=== PATIENT | female | born 1955 | race Caucasian/White ===

== ENCOUNTER → 2016-11-03 | Outpatient (CLI) | payer OTHER ==
[~2016-11-03] MED LIST: ASCO10003 PO; CITA40TA12 PO; DEXL60CA4 PO; KETO10TA PO; LEVO125T72 PO; MELO7.5T5 PO; OXYC-57 PO; ROSU20TA PO; ZOLP5TAB PO
[2016-11-03 17:12] LABS: BASO % 0.6 %; BASO ABS # 0.03 K/uL (0-0.2); COMPLETE YES; EOS % 5.2 %; HEMATOCRIT 41.4 % (37-47); IG% 0.2 %; LYMPH % 44.9 %; LYMPH ABS # 2.34 K/uL (1.2-3.4); MEAN CELL VOLUME 96.7 fL (80-100); MEAN CORPUSCULAR HEMOGLOBIN 32.7 pg (25-34); MEAN CORPUSCULAR HGB CONC 33.8 g/dl (32-36); MEAN PLATELET VOLUME 9.5 fL (7.4-10.4); MONO % 11.3 %; NEUT % 37.8 %; PLATELET COUNT 187 K/uL (130-400); RED BLOOD COUNT 4.28 M/uL (4.2-5.4); WHITE BLOOD COUNT 5.21 K/uL (4.8-10.8)
== END | disposition home or self-care (01) ==
LOC: C.LAB 16:07
PROVIDERS: ATTEND Orthopaedic Surgery Sports Medicine
DX: Z01.810 Encounter for preprocedural cardiovascular examination (principal); Z01.812 Encounter for preprocedural laboratory examination; M19.90 Unspecified osteoarthritis, unspecified site

== ENCOUNTER → 2016-11-23 | Day surgery (SDC) | payer OTHER ==
[~2016-11-23] VITALS: Ht 157.5 cm; Wt 98.6 kg
[~2016-11-23] MED LIST changes: +ATROPINE SULFATE 0.1 MG/ML 5ML SYR IV PRN; +BUPIVACAINE/EPINEPHRINE 0.5% MPF 1:200,000 30 ML VIAL ONE; +CLINDAMYCIN PHOS 150 MG/ML 2 ML VIAL IV SCH; +DEXAMETHASONE SOD INJ 4 MG/ML VIAL ONE; +DOXY-300 PO; +EpHEDrine SULFATE INJ 50 MG/ML AMP IV PRN; +FENTANYL CITRATE INJ 50 MCG/1 ML 2 ML VIAL ONE; +HYDROmorphone INJ 0.5 MG/0.5 ML SYR ONE; +HYDROmorphone INJ 2 MG/ML SYR/VIAL IV PRN; +LABETALOL HCL IV 5 MG/ML 20ML IV ONE; +LACTATED RINGER'S 1000ML 1,000 ML IV SCH; +LIDOCAINE HCL 2% 2 ML VIAL (20MG/ML) ONE; +MIDAZOLAM HCL 1 MG/ML 2ML VIAL ONE; +ONDANSETRON INJ 2 MG/ML 2 ML VIAL IV PRN; +ONDANSETRON INJ 2 MG/ML 2 ML VIAL ONE; +OXYCODONE/ACETAMINOPHEN 5-325 TAB PO PRN; +PHENYLEPHRINE 100MCG/ML 5ML SYR IV PRN; +PROPOFOL IV EMULSION 10 MG/ML 20 ML VIAL IV ONE; +SODIUM CHLORIDE 0.9% 1000ML 1,000 ML IV SCH
--- NOTE | 2016-11-23 06:55 | History & Physical Bridge - [place] ---
H&P Re-Evaluation Bridge Note: I have examined the patient, reviewed the History & Physical and in the interval since the performance of the History & Physical I have noted the following changes of clinical significance: No changes noted
[2016-11-23 07:12] VITALS: Ht 157.5 cm; Wt 98.6 kg
--- NOTE | 2016-11-23 09:08 | [facility] Post Operative Brief Note ---
Immediate Operative Summary Operative Date Nov 23, 2016. Pre-Operative Diagnosis Left First CMC DJD Post-Operative Diagnosis Same Procedure(s) Performed Left Thumb Carpometacarpal Joint Arthroplasty Surgeon Dr. Herman Disability Examiner Surgeon(s) Tai Betancur PA-C Estimated Blood Loss Minimal Findings CMC DJD Specimens None Anesthesia General Complication(s) None Disposition Recovery Room / PACU
--- NOTE | 2016-11-23 09:13 | Discharge Instructions-SurgCtr ---
Discharge Instructions Date of Service Nov 23, 2016. Visit Reason for Visit: Left Localized Primary Osteoarthritis Wrist, Pain Discharge Discharge Diagnosis / Problem: left thumb cmc joint arthritis Discharge Goals Goal(s): Decrease discomfort, Improve function, Therapeutic intervention Medications Stopped Medications Name(s): Vitamin C- stopped 10 days ago. Mobic- stopped 10 days ago. Restart Stopped Medication(s): may restart vitamin c. may restart mobic when finished taking toradol Activity Recommendations Activity Limitations: per Instructions/Follow-up section limited use of left hand Anesthesia . Post Anesthesia Instructions: If you have had General Anesthesia or IV Sedation: * Do not drive today. * Resume driving when surgeon permits. * Do not make important decisions or sign legal documents today. * Call surgeon for: 1. Temperature elevations greater than 101 degrees F. 2. Uncontrollable pain. 3. Excessive bleeding. 4. Persistent nausea and vomiting. 5. Medication intolerance (nausea, vomiting or rash). * For nausea and vomiting use only clear liquids such as: tea, soda, bouillon until nausea subsides, then gradually increase diet as tolerated. * If you have any concerns or questions, call your surgeon's office. If physician is unavailable and it is an emergency, call 911 or go to the nearest emergency room. . Instructions / Follow-Up Instructions / Follow-Up MEDICATIONS: * Resume previous medications unless instructed otherwise by your surgeon. * Always take pain medication on a full stomach or with food to avoid upset stomach. * Do not drink alcohol or drive while taking narcotics. * Tylenol may be taken if narcotic not needed. SPECIAL CARE INSTRUCTIONS: __ None _x_ Keep extremity elevated and iced x 48 hours; apply ice 20-30 minutes 8-10 times/day. May remove at night. _x_ Sling __24 hrs/day __ Remove at night __ Shoulder Immobilizer __ 24 hrs/day __ Remove at night _x_ Dressing _x_ Maintain until seen in office, may shower with plastic over site __ Remove dressings in 24-48 hours and then may shower __ Cover incisions with band-aids after showering __ Do not remove steri-strips Call physician if chills or temperature rises above 102 degrees or pain unrelieved by prescribed pain medications at . . follow up in 2 weeks Diet Recommendations Home Diet: resume previous diet Procedures Procedures Performed: Left Thumb Carpometacarpal Joint Arthroplasty Pending Studies Studies pending at discharge: no Medical Emergencies . Who to Call and When: Medical Emergencies: If at any time you feel your situation is an emergency, please call 911 immediately. . Non-Emergent Contact Non-Emergency issues call your: Surgeon . . "Provider Documentation" section prepared by Al Betancur.
--- NOTE | 2016-11-23 09:33 | DIAGNOSTIC IMAGING REPORT ---
INTRAOPERATIVE LEFT WRIST (2 views) CLINICAL HISTORY: LT THUMB CMC ARTHROPLASTY COMPARISON STUDY: None FLUOROSCOPY TIME: 57 seconds. FINDINGS: 2 intraoperative fluoroscopic spot images reveal an orthopedic wire traversing the proximal first and second metacarpals. There has been apparent resection of the trapezium. IMPRESSION: Postsurgical changes as described above. Electronically signed by: Pedro Morales M.D. 11/23/2016 9:31 AM Dictated Date/Time: 11/23/2016 9:30 AM
[2016-11-23 10:06] VITALS: TEMP 36.6
--- NOTE | 2016-11-23 10:20 | Anesthesia Progress Nt - [facility] ---
Anesthesia Post Op Note Date & Time Nov 23, 2016 at 10:20 Vital Signs Pain Intensity: 7 Vital Signs Past 12 Hours Date Time Temp Pulse Resp B/P Pulse Ox O2 Delivery O2 Flow Rate FiO2 11/23/16 10:00 139/75 11/23/16 09:59 67 20 92 11/23/16 09:59 68 20 11/23/16 09:59 67 20 92 11/23/16 09:59 67 20 92 11/23/16 09:59 68 20 11/23/16 09:59 68 20 11/23/16 09:58 73 16 94 11/23/16 09:58 73 16 11/23/16 09:56 37.1 Room Air 11/23/16 09:55 130/103 11/23/16 09:53 68 23 11/23/16 09:53 67 23 98 11/23/16 09:50 136/74 11/23/16 09:48 66 16 98 11/23/16 09:48 66 16 11/23/16 09:47 68 20 98 11/23/16 09:47 67 20 11/23/16 09:45 141/66 11/23/16 09:42 65 21 11/23/16 09:42 64 21 98 11/23/16 09:40 136/72 11/23/16 09:37 70 17 93 11/23/16 09:37 71 17 11/23/16 09:35 154/74 11/23/16 09:32 66 16 11/23/16 09:32 65 16 99 11/23/16 09:30 150/71 11/23/16 09:27 68 16 11/23/16 09:27 68 16 99 11/23/16 09:25 150/78 11/23/16 09:22 68 14 11/23/16 09:22 68 14 99 11/23/16 09:20 165/81 11/23/16 09:17 69 18 99 11/23/16 09:17 69 18 11/23/16 09:16 145/80 11/23/16 09:12 36.7 80 18 183/93 99 Mask 8 11/23/16 09:12 72 15 183/93 100 11/23/16 09:12 73 15 11/23/16 07:03 36.6 70 18 217/106 96 Room Air Notes Mental Status: alert / awake / arousable, participated in evaluation Pt Amnestic to Procedure: Yes Nausea / Vomiting: adequately controlled Pain: adequately controlled Airway Patency, RR, SpO2: stable & adequate BP & HR: stable & adequate Hydration State: stable & adequate Anesthetic Complications: no major complications apparent
[2016-11-23 10:43] VITALS: BP 143/77; PULSE 70; O2SAT 97
--- NOTE | 2016-11-24 00:34 | OPERATIVE REPORT ---
DATE OF OPERATION: 11/23/2016 SURGEON: Phuc Herman MD RN CARDIOVASCULAR ICU: [facility] PREOPERATIVE DIAGNOSIS: Left first CMC joint arthritis. POSTOPERATIVE DIAGNOSIS: Same. PROCEDURE PERFORMED: Left first CMC joint suspension arthroplasty. COMPLICATIONS: None. ESTIMATED BLOOD LOSS: Minimal. TOURNIQUET TIME: 35 minutes at 250 mmHg. ANESTHESIA: General. SPECIMENS: None. OPERATIVE INDICATIONS: The patient is a 61-year-old female who has about a year history of left thumb pain and discomfort. She wore a splint initially which provided some temporary relief, but then became less successful over time. She had an injection which helped very temporarily. She has had persistent pain with gripping activities and elected to proceed with surgical treatment. OPERATIVE PROCEDURE: The patient taken to the operating room, identified and placed on the operating table in supine position. All contact areas were appropriately padded. IV antibiotics were provided by the anesthesia team. A general anesthetic was implemented by anesthesia team. A left upper extremity tourniquet was placed. The left arm was then prepped and draped in the usual sterile fashion. Left arm was elevated and exsanguinated with Esmarch and tourniquet was placed at 250 mmHg. About a 4 cm incision was made just at the base of the first metacarpal directly over the first dorsal compartment. Blunt dissection was carried out through the subcutaneous tissues taking great care to protect branches of superficial radial nerve. An incision was then made between the abductor pollicis longus and extensor pollicis brevis tendons. Sharp dissection was carried directly down to the bone and into the trapezium. The capsule was then stripped off the dorsal and volar side of the trapezium as well as the base of the first metacarpal. Once adequate exposure was obtained, a saw was used to section the trapezium. I then used an osteotome to complete this and then removed the trapezium in a piecemeal fashion. Great care was taken to protect the palmar ligaments. Once all the bone had been excised, x-ray was brought in to verify trapezium was completely resected. Once this was complete, we irrigated the wound extensively and injected locally with about 20 mL of 0.5% Marcaine with epinephrine and then irrigated with another 10 mL. I then closed the capsule with 2-0 Vicryl suture in a [id number] fashion. The tourniquet was then let down for a tourniquet time of 35 minutes. Hemostasis was assured with use of electrocautery. The wound was once again irrigated. The subcutaneous tissues were then closed with 2-0 Dexon suture in a buried interrupted fashion. Skin was closed with 4-0 nylon suture in a horizontal mattress fashion. X-ray was then brought in. Keeping the thumb in maximum extension and pronation, I then pinned the first metacarpal to the base of the second. Great care was taken to make sure that the pin did not irritate any of the extensor tendons. Once position was verified, a pin ball was placed in the end of the pin and the pin was cut. A sterile dressing composed of Xeroform, 4 x 4's, sterile cast padding and a thumb spica splint were applied. The patient was then placed in a sling. She was brought out of general anesthesia and transferred to the recovery room in stable condition. The patient tolerated the procedure well with no complications. All needle and sponge counts were correct at the end of the operation. I attest to the content of the Intraoperative Record and any orders documented therein. Any exceptio ns are noted below.
== END | disposition home or self-care (01) ==
LOC: X.SURG 06:28
PROVIDERS: ATTEND Orthopaedic Surgery Sports Medicine
DX: M18.12 Unilateral primary osteoarthritis of first carpometacarpal joint, left hand (principal); F17.210 Nicotine dependence, cigarettes, uncomplicated

== ENCOUNTER → 2017-03-09 | Outpatient (CLI) | payer OTHER ==
[~2017-03-09] MED LIST changes: -ATROPINE SULFATE 0.1 MG/ML 5ML SYR IV PRN; -BUPIVACAINE/EPINEPHRINE 0.5% MPF 1:200,000 30 ML VIAL ONE; -CLINDAMYCIN PHOS 150 MG/ML 2 ML VIAL IV SCH; -DEXAMETHASONE SOD INJ 4 MG/ML VIAL ONE; -DOXY-300 PO; -EpHEDrine SULFATE INJ 50 MG/ML AMP IV PRN; -FENTANYL CITRATE INJ 50 MCG/1 ML 2 ML VIAL ONE; -HYDROmorphone INJ 0.5 MG/0.5 ML SYR ONE; -HYDROmorphone INJ 2 MG/ML SYR/VIAL IV PRN; -KETO10TA PO; -LABETALOL HCL IV 5 MG/ML 20ML IV ONE; -LACTATED RINGER'S 1000ML 1,000 ML IV SCH; -LIDOCAINE HCL 2% 2 ML VIAL (20MG/ML) ONE; -MELO7.5T5 PO; -MIDAZOLAM HCL 1 MG/ML 2ML VIAL ONE; -ONDANSETRON INJ 2 MG/ML 2 ML VIAL IV PRN; -ONDANSETRON INJ 2 MG/ML 2 ML VIAL ONE; -OXYCODONE/ACETAMINOPHEN 5-325 TAB PO PRN; -PHENYLEPHRINE 100MCG/ML 5ML SYR IV PRN; -PROPOFOL IV EMULSION 10 MG/ML 20 ML VIAL IV ONE; -SODIUM CHLORIDE 0.9% 1000ML 1,000 ML IV SCH
== END | disposition home or self-care (01) ==
LOC: C.LABMFLN 13:22
PROVIDERS: ATTEND Family Medicine
DX: R30.0 Dysuria (principal)

== ENCOUNTER → 2017-07-11 | Day surgery (SDC) | payer OTHER ==
[2017-07-05 08:10] VITALS: Ht 157.5 cm; Wt 100.0 kg
[~2017-07-11] VITALS: Ht 157.5 cm; Wt 100.0 kg
[~2017-07-11] MED LIST changes: +ATROPINE SULFATE 0.1 MG/ML 5ML SYR IV PRN; +BUPIVACAINE 0.5 % 5 MG/1 ML PF 10ML VIAL ONE; +CLINDAMYCIN 600 MG/54 ML D5W 54 ML IV SCH; +CLINDAMYCIN 600MG IV SCH; +DOXY-300 PO; +EpHEDrine SULFATE INJ 50 MG/ML AMP IV PRN; +FENTANYL CITRATE INJ 50 MCG/1 ML 2 ML VIAL IV PRN; +FENTANYL CITRATE INJ 50 MCG/1 ML 2 ML VIAL ONE; +KETO10TA PO; +LACTATED RINGER'S 1000ML 1,000 ML IV SCH; +LIDOCAINE HCL 1% 20 ML VIAL ONE; +LIDOCAINE HCL 2% 2 ML VIAL (20MG/ML) ONE; +MIDAZOLAM HCL 1 MG/ML 2ML VIAL ONE; +ONDANSETRON INJ 2 MG/ML 2 ML VIAL IV PRN; +ONDANSETRON INJ 2 MG/ML 2 ML VIAL ONE; -OXYC-57 PO; +OXYCODONE/ACETAMINOPHEN 5-325 TAB PO PRN; +PROPOFOL IV EMULSION 10 MG/ML 20 ML VIAL IV ONE; +SODIUM CHLORIDE 0.9% 1000ML 1,000 ML IV SCH
--- NOTE | 2017-07-11 08:04 | [facility] Post Operative Brief Note ---
Immediate Operative Summary Operative Date Jul 11, 2017. Pre-Operative Diagnosis Left Ring Finger Trigger Digit Post-Operative Diagnosis Same Procedure(s) Performed Left Ring Trigger Finger Release Surgeon Dr. Morales Dye House Worker Surgeon(s) Ciaran Gan PA-C Estimated Blood Loss 0 Findings ABOVE Specimens None Anesthesia LOCAL IV SEDATION Complication(s) None Disposition
[2017-07-11 08:08] VITALS: TEMP 36.7
--- NOTE | 2017-07-11 08:09 | Discharge Instructions-SurgCtr ---
Discharge Instructions Date of Service Jul 11, 2017. Visit Reason for Visit: Left Ring Finger Trigger Finger Discharge Discharge Diagnosis / Problem: SAMEA ABOVE Discharge Goals Goal(s): Decrease discomfort, Improve function Activity Recommendations Activity Limitations: as noted below Lifting Limitations: until after follow-up appointment Exercise/Sports Limitations: until after follow-up appointment Shower/Bathe: keep incision dry Anesthesia . Post Anesthesia Instructions: If you have had General Anesthesia or IV Sedation: * Do not drive today. * Resume driving when surgeon permits. * Do not make important decisions or sign legal documents today. * Call surgeon for: 1. Temperature elevations greater than 101 degrees F. 2. Uncontrollable pain. 3. Excessive bleeding. 4. Persistent nausea and vomiting. 5. Medication intolerance (nausea, vomiting or rash). * For nausea and vomiting use only clear liquids such as: tea, soda, bouillon until nausea subsides, then gradually increase diet as tolerated. * If you have any concerns or questions, call your surgeon's office. If physician is unavailable and it is an emergency, call 911 or go to the nearest emergency room. . Instructions / Follow-Up Instructions / Follow-Up MEDICATIONS: * Resume previous medications unless instructed otherwise by your surgeon. * Always take pain medication on a full stomach or with food to avoid upset stomach. * Do not drink alcohol or drive while taking narcotics. * Ibuprofen or Tylenol may be taken if narcotic not needed. SPECIAL CARE INSTRUCTIONS: __ None _x_ Keep extremity elevated and iced x 48 hours; apply ice 20-30 minutes 8-10 times/day. May remove at night. __ Sling __24 hrs/day __ Remove at night __ Shoulder Immobilizer __ 24 hrs/day __ Remove at night _x_ Dressing __ Maintain until seen in office, may shower with plastic over site _x_ Remove dressings in 24-48 hours and then may shower _x_ Cover incisions with band-aids after showering __ Do not remove steri-strips Call physician if chills or temperature rises above 102 degrees or pain unrelieved by prescribed pain medications at . . Diet Recommendations Home Diet: no limitations Procedures Procedures Performed: Left Ring Trigger Finger Release Pending Studies Studies pending at discharge: no Medical Emergencies . Who to Call and When: Medical Emergencies: If at any time you feel your situation is an emergency, please call 911 immediately. . Non-Emergent Contact Non-Emergency issues call your: Primary Care Provider . . "Provider Documentation" section prepared by Jorden Gan. .
[2017-07-11 08:23] VITALS: BP 160/96; PULSE 62; O2SAT 97
--- NOTE | 2017-07-11 08:24 | OPERATIVE REPORT ---
DATE OF OPERATION: 07/11/2017 PREOPERATIVE DIAGNOSIS: Left ring trigger finger. POSTOPERATIVE DIAGNOSIS: Same. PROCEDURE: Release of the A1 norm, left ring finger. SURGEON: Dr. Tien Morales, PERINATAL BREASTFEEDING ASSISTANT: Jorden Gan PA-C ANESTHESIOLOGIST: Gael Ivy DO ANESTHESIA: Local with IV sedation. DRAINS: None. COMPLICATIONS: None. CONDITION: The patient tolerated the procedure well and returned to recovery room in apparent satisfactory condition. INDICATIONS FOR SURGERY: Sabrina is a 62-year-old female who has had triggering of her left ring finger, which has gotten progressively worse. We went over treatment options and she elected to go ahead and proceed with surgery. DESCRIPTION OF PROCEDURE: The patient was taken to the OR, at which time she was placed supine on the operating table and given IV sedation by the anesthesia department. Left hand was prepped and draped in the usual sterile fashion for surgery. We exsanguinated the hand and put the forearm tourniquet up to 250 mmHg. We made a transverse incision over the A1 norm and dissected down with loupe magnification. We divided the A1 norm without incident. We used an 11 blade and a tenotomy scissors. The finger was taken through a range of motion with no longer triggering. The wound then was irrigated. Incision then was closed with interrupted 4-0 nylon sutures. Marcaine without epinephrine was placed in skin edges. She was placed in a sterile dressing of Xeroform, 4 x 4, gauze and a Coban and returned back to recovery room in apparent satisfactory condition. I attest to the content of the Intraoperative Record and any orders documented therein. Any exception s are noted below.
--- NOTE | 2017-07-11 08:26 | Anesthesia Progress Nt - [facility] ---
Anesthesia Post Op Note Date & Time Jul 11, 2017 at 08:25 Vital Signs Pain Intensity: 0 Vital Signs Past 12 Hours Date Time Temp Pulse Resp B/P (MAP) Pulse Ox O2 Delivery O2 Flow Rate FiO2 07/11/17 08:23 62 16 160/96 (117) 97 Room Air 07/11/17 08:08 36.7 63 16 150/80 (103) 98 Room Air 07/11/17 06:46 36.5 71 18 167/96 (119) 96 Room Air Notes Mental Status: alert / awake / arousable, participated in evaluation Pt Amnestic to Procedure: Yes Nausea / Vomiting: adequately controlled Pain: adequately controlled Airway Patency, RR, SpO2: stable & adequate BP & HR: stable & adequate Hydration State: stable & adequate Anesthetic Complications: no major complications apparent
== END | disposition home or self-care (01) ==
LOC: X.SURG 06:31
PROVIDERS: ATTEND Orthopaedic Surgery
DX: M65.342 Trigger finger, left ring finger (principal); E03.9 Hypothyroidism, unspecified; E78.00 Pure hypercholesterolemia, unspecified; E66.9 Obesity, unspecified; Z68.41 Body mass index [BMI] 40.0-44.9, adult; M19.90 Unspecified osteoarthritis, unspecified site; Z88.0 Allergy status to penicillin; Z88.1 Allergy status to other antibiotic agents; Z98.890 Other specified postprocedural states; Z79.899 Other long term (current) drug therapy

== ENCOUNTER → 2017-09-13 | Outpatient (CLI) | payer OTHER ==
[~2017-09-13] MED LIST changes: -ATROPINE SULFATE 0.1 MG/ML 5ML SYR IV PRN; -BUPIVACAINE 0.5 % 5 MG/1 ML PF 10ML VIAL ONE; -CLINDAMYCIN 600 MG/54 ML D5W 54 ML IV SCH; -CLINDAMYCIN 600MG IV SCH; -EpHEDrine SULFATE INJ 50 MG/ML AMP IV PRN; -FENTANYL CITRATE INJ 50 MCG/1 ML 2 ML VIAL IV PRN; -FENTANYL CITRATE INJ 50 MCG/1 ML 2 ML VIAL ONE; -LACTATED RINGER'S 1000ML 1,000 ML IV SCH; -LIDOCAINE HCL 1% 20 ML VIAL ONE; -LIDOCAINE HCL 2% 2 ML VIAL (20MG/ML) ONE; -MIDAZOLAM HCL 1 MG/ML 2ML VIAL ONE; -ONDANSETRON INJ 2 MG/ML 2 ML VIAL IV PRN; -ONDANSETRON INJ 2 MG/ML 2 ML VIAL ONE; -OXYCODONE/ACETAMINOPHEN 5-325 TAB PO PRN; -PROPOFOL IV EMULSION 10 MG/ML 20 ML VIAL IV ONE; -SODIUM CHLORIDE 0.9% 1000ML 1,000 ML IV SCH
[2017-09-13 12:45] LABS: BASO % 0.7 %; BASO ABS # 0.03 K/uL (0-0.2); EOS % 4.5 %; HEMATOCRIT 43.1 % (37-47); HEMOGLOBIN 14.4 g/dL (12.0-16.0); IG# 0.01 K/uL (0.00-0.02); LYMPH % 27.4 %; LYMPH ABS # 1.23 K/uL (1.2-3.4); MEAN CELL VOLUME 97.3 fL (80-100); MEAN CORPUSCULAR HEMOGLOBIN 32.5 pg (25-34); MEAN CORPUSCULAR HGB CONC 33.4 g/dl (32-36); MEAN PLATELET VOLUME 9.7 fL (7.4-10.4); MONO % 14.3 %; MONO ABS # 0.64 K/uL (0.11-0.59); NEUT % 52.9 %; NEUT ABS # 2.38 K/uL (1.4-6.5); PLATELET COUNT 167 K/uL (130-400); RED CELL DISTRIBUTION WIDTH CV 12.9 % (11.5-14.5); RED CELL DISTRIBUTION WIDTH SD 45.7 fL (36.4-46.3); WHITE BLOOD COUNT 4.49 K/uL (4.8-10.8)
[2017-09-13 13:31] LABS: HEMOGLOBIN A1C 5.6 % (4.5-5.6)
[2017-09-13 13:42] LABS: ALBUMIN 3.6 gm/dl (3.4-5.0); AST/SGOT 54 U/L (15-37); BLOOD UREA NITROGEN 13 mg/dl (7-18); CALCIUM 9.2 mg/dl (8.5-10.1); CARBON DIOXIDE 26 mmol/L (21-32); CHOLESTEROL 177 mg/dl (0-200); CREATININE 0.69 mg/dl (0.60-1.20); GLUCOSE 104 mg/dl (70-99); POTASSIUM 3.7 mmol/L (3.5-5.1); SODIUM 139 mmol/L (136-145)
[2017-09-13 13:53] LABS: ALKALINE PHOSPHATASE 112 U/L (45-117); ALT/SGPT 70 U/L (12-78); LDL CHOLESTEROL CALCULATED 115 mg/dl; TOTAL PROTEIN 7.6 gm/dl (6.4-8.2)
== END | disposition home or self-care (01) ==
LOC: C.LABMFLN 08:39
PROVIDERS: ATTEND Family Medicine
DX: I10 Essential (primary) hypertension (principal); E78.5 Hyperlipidemia, unspecified; R73.03 Prediabetes; E03.9 Hypothyroidism, unspecified

== ENCOUNTER 2024-05-29 09:46 | Observation (INO) ==
--- NOTE | 2024-04-17 11:30 | PAT Medication Instructions ---
Medication Instructions Date of Service April 17, 2024 Home Medications Medication Instructions Recorded Barby Walker #1 ea 02/16/24 rosuvastatin 10 mg tablet 10 mg PO QAM #90 tabs 03/28/24 sertraline 50 mg tablet (Zoloft) 50 mg PO HS #90 tabs 03/28/24 zolpidem 6.25 mg tablet,extended 6.25 mg PO HS PRN sleep #30 tabs 04/16/24 release,multiphase Medication List: acetaminophen 650 mg tablet,extended release (Tylenol Arthritis Pain) 650 mg PO QAM cholecalciferol (vitamin D3) 50 mcg (2,000 unit) capsule 50 mcg PO QAM rosuvastatin 10 mg tablet 10 mg PO QAM sertraline 50 mg tablet (Zoloft) 50 mg PO HS [place] Mushroom 1 dose PO QAM ascorbic acid (vitamin C) 1,000 mg tablet (Vitamin C) 1,000 mg PO QAM dexlansoprazole 60 mg capsule,biphase delayed release (Dexilant) 60 mg PO 1200 fexofenadine 180 mg tablet 90 mg PO QAM gabapentin 300 mg capsule 300 mg PO HS levothyroxine 88 mcg tablet 88 mcg PO QAM lisinopril 20 mg tablet 20 mg PO QAM prednisone 1 mg tablet 2 mg PO UD zolpidem 6.25 mg tablet,extended release,multiphase 6.25 mg PO HS PRN sleep MEDICATION INSTRUCTIONS: Continue as directed dexlansoprazole 60 mg capsule,biphase delayed release (Dexilant) 60 mg PO 1200 ( may take AM of surgery depending on timing of surgery) STOP taking 2 weeks before surgery [place] Mushroom 1 dose PO QAM DO NOT take the morning of surgery lisinopril 20 mg tablet 20 mg PO QAM ascorbic acid (vitamin C) 1,000 mg tablet (Vitamin C) 1,000 mg PO QAM cholecalciferol (vitamin D3) 50 mcg (2,000 unit) capsule 50 mcg PO QAM fexofenadine 180 mg tablet 90 mg PO QAM Take morning of surgery With a small sip of water, OTHERWISE NOTHING TO EAT OR DRINK AFTER MIDNIGHT: acetaminophen 650 mg tablet,extended release (Tylenol Arthritis Pain) 650 mg PO QAM levothyroxine 88 mcg tablet 88 mcg PO QAM rosuvastatin 10 mg tablet 10 mg PO QAM prednisone 1 mg tablet 2 mg PO UD Take evening before surgery sertraline 50 mg tablet (Zoloft) 50 mg PO HS gabapentin 300 mg capsule 300 mg PO HS zolpidem 6.25 mg tablet,extended release,multiphase 6.25 mg PO HS PRN sleep Other Notes If you have any questions please call us at [phone] or [phone] or [phone] or [phone]
--- NOTE | 2024-04-29 12:47 | Anesthesiology Consultation ---
Date of Service April 29, 2024 Assessment & Plan (1) Encounter for pre-operative examination: - Infectious disease screening: Per assessment on 04/29/24: No known recent infectious disease contacts or current infectious disease symptoms. - Outpatient joint assessment: Pt currently scheduled for inpatient pathway. If surgeon requests review for outpatient joint pathway, patient is an acceptable candidate for outpatient joint program from anesthesia standpoint pending surgeon's office assessment that patient is motivated, has good support and completes Same Day Joint Program preop requirements. Chart Review Chart Review: Acceptable Risk for Surgery and Patient seen in Pre Admission Testing Teaching & Discussion Pre-Anesthesia Teaching/Discussion Notes: Instructed NPO after midnight before surgery,except medications with 15 cc of water. Medication instructions provided according to the PAT guidelines. History Surgery Operation Date: 05/29/24 07:00 Proposed Procedures p Right Total Knee Arthroplasty - Phuc Herman MD Height/Weight Height: 5 ft 2 in Weight: 87.1 kg Allergies Allergy/AdvReac Type Severity Reaction Status Date / Time Penicillins Allergy Unknown Rash Verified 04/29/24 13:13 Medications Home Medications Medication Instructions Recorded Confirmed Last Taken acetaminophen 650 mg 650 mg PO QAM 03/24/21 04/24/24 02/11/23 tablet,extended release (Tylenol Arthritis Pain) cholecalciferol (vitamin D3) 50 50 mcg PO QAM 03/31/23 04/24/24 Unknown mcg (2,000 unit) capsule Wheeled Walker #1 ea 02/16/24 04/24/24 Unknown rosuvastatin 10 mg tablet 10 mg PO QAM #90 tabs 03/28/24 04/24/24 Unknown sertraline 50 mg tablet (Zoloft) 50 mg PO #90 tabs 03/28/24 04/24/24 Unknown [place] Mushroom 1 dose PO QAM 04/16/24 04/24/24 Unknown ascorbic acid (vitamin C) 1,000 mg 1,000 mg PO QAM 04/16/24 04/24/24 Unknown tablet (Vitamin C) dexlansoprazole 60 mg 60 mg PO 1200 04/16/24 04/24/24 Unknown capsule,biphase delayed release (Dexilant) fexofenadine 180 mg tablet 90 mg PO QAM 04/16/24 04/24/24 Unknown gabapentin 300 mg capsule 300 mg PO HS 04/16/24 04/24/24 Unknown levothyroxine 88 mcg tablet 88 mcg PO QAM 04/16/24 04/24/24 Unknown lisinopril 20 mg tablet 20 mg PO QAM 04/16/24 04/24/24 Unknown zolpidem 6.25 mg tablet,extended 6.25 mg PO HS PRN sleep #30 tabs 04/16/24 04/24/24 Unknown release,multiphase methylprednisolone 4 mg tablet 4 mg PO DAILY 04/29/24 Unknown Past Medical History Medical History Anxiety Davis esophagus "Controlled, stable" Benign paroxysmal positional vertigo No recent issues Bilateral tinnitus chronic Chronic back pain Claustrophobia Depression GERD (gastroesophageal reflux disease) Hearing deficit L > R Has hearing aids (occasional use) History of COVID-19 03/27/2024 (home test): fatigue, muscle aches, sinus congestion, sore throat, cough, fever > resolved Hx of colonic polyps Hyperlipidemia Hypertension Hypothyroidism Insomnia Lumbar spinal stenosis Lumbar spondylosis Obesity PMR (polymyalgia rheumatica) Follows with Dr. Tran, current Methylprednisolone 4mg daily Pre-diabetes Monitoring Current diet/lifestyle modifications Exercise / Class Metabolic Activity III < 4 Walking/Shop/Light housework Past Family History Family History Father Coronary heart disease Heart disease Hypertension Mother Diabetes Non Hodgkin's lymphoma Lymphoma Cancer Stroke Other Hypothyroidism No family history of adverse response to anesthesia Past Surgical History Surgical History H/O hand surgery Left thumb tendon repair History of bilateral cataract extraction History of carpal tunnel release of both wrists History of esophagogastroduodenoscopy (EGD) History of temporal artery biopsy (08/26/19) Bilateral temporal artery biopsy Hx of colonoscopy Hx of tonsillectomy S/P epidural steroid injection x1 Lumbar S/P excision of ganglion cyst Multiple, b/l S/P right knee surgery (1974) Past Anesthesia History No Hx of Anesthesia Complications and No Family Hx of Anesthesia Complications History of PONV No Hx of PONV and Hx of Motion Sickness (Occasional ) Social History Smoking Status: Never smoker tobacco type: cigars Do You Dip or Chew Tobacco: No Hx Alcohol Use: Yes Alcohol type: beer alcohol intake frequency: a few times a week Hx Substance Use: No substance use type: does not use Review of Systems Patient denies chest pain, shortness of breath, fever, chills, cough, wheezing, palpitations. Physical Exam Vital Signs BP 167/83 P 67 TEMP 98.1 SP02 97%RA RESP 16 Physical Full cervical extension range of motion. Full TMJ range of motion. TMD 3 finger breaths Mallampati Score I Dentition: intact, + implant, + several crowns Lungs: clear throughout to auscultation Cardiac: regular rate and rhythm, no murmurs noted Spine: normal Carotid arteries: negative bruit Extremities: no LE edema Lab Results Anesthesia Preop Results Results Anesthesia Widget: WBC 5.32 K/ul (4.8-10.8) 04/29/24 Hgb 13.2 g/dl (12.0-16.0) 04/29/24 Hct 40.0 % (37.0-47.0) 04/29/24 Plt 194 K/uL (130-400) 04/29/24 Na 141 mmol/L (136-145) 04/29/24 K 3.9 mmol/L (3.5-5.1) 04/29/24 Cl 106 mmol/L (98-107) 04/29/24 CO2 27 mmol/L (21-32) 04/29/24 BUN 18 mg/dl (6-23) 04/29/24 Creat 0.80 mg/dl (0.6-1.2) 04/29/24 Glucose Level 112 mg/dl (70-99(Fasting)) H 04/29/24 PT 10.4 Seconds (9.0-12.0) 04/29/24 PTT 25 Seconds (21-31) 04/29/24 INR 1.0 (0.9-1.1) 04/29/24 HA1c 5.6 % (4.5-5.6) 04/29/24 Blood Type O Positive 04/29/24 Antibody Screen NEGATIVE 04/29/24 Testing Electrocardiogram Date: 04/29/24 NSR at 61bpm. Minimal voltage criteria for LVH, may be normal variant (R in aVL). NS TWA. Chest X-Ray Date: 04/29/24 FINDINGS: PA and lateral chest radiographs are obtained. No prior studies are available for comparison at the time of dictation. The cardiomediastinal silhouette is top normal for projection. The lungs and pleural spaces are clear. There is no pneumothorax. The skeletal structures are osteopenic. The bony thorax appears intact. Calcific tendinopathy is seen in the right shoulder. Degenerative changes noted in the thoracic spine. IMPRESSION: No active disease in the chest. Stress Test Date: 02/19/21 Impression: 1. Negative exercise stress ECG for ischemia at 94% MPHR. 2. No arrhythmia. 3. Mildly hypertensive blood pressure response to exercise. 4. No chest pain reported. 5. Poor/fair Exercise tolerance.
--- NOTE | 2024-05-25 18:05 | History & Physical Report ---
Date of Service May 25, 2024 Assessment & Plan (1) Right knee DJD: 69-year-old female with a longstanding history of right knee pain discomfort and stiffness gradually gotten worse. Has evidence of previous surgery many years ago 1974. She is failed conservative treatment. She had tricompartment disease. Would like to have her right knee replaced. Plan we can proceed with right total knee replacement. The risks and benefits of that procedure were explained. She understands. Informed consent was obtained. Will plan on using aspirin for DVT prophylaxis. She is going to use [facility] for recovery. (2) Hypertension: (3) Hypothyroidism: (4) Prediabetes: (5) Hyperlipidemia: (6) Depression: (7) PMR (polymyalgia rheumatica): (8) Acid reflux: History of Present Illness Chief Complaint: . Longstanding gradual progressive right knee pain discomfort stiffness. Primary Care Provider: Marli Bolton DO . The patient is a 69-year-old female from [place] who presents for surgical treatment of her right knee. Long history of knee problems and had a open knee procedure done in [place] back in 1974. Most likely related somewhat to the patellofemoral joint. Over the years she developed persistent and progressive increased pain in her knee. Is global pain. Describes gotten worse and less responsive conservative care. Intermittent swelling. She also is being treated for PMR by Dr. Tran. Did not like proceed with definitive treatment for her right knee. Allergies Allergy/AdvReac Type Severity Reaction Status Date / Time Penicillins Allergy Unknown Rash Verified 05/03/24 07:08 Home Medications Medication Instructions Recorded Confirmed Type acetaminophen 650 mg 650 mg PO QAM 03/24/21 05/03/24 History tablet,extended release (Tylenol Arthritis Pain) cholecalciferol (vitamin D3) 50 50 mcg PO QAM 03/31/23 05/03/24 History mcg (2,000 unit) capsule rosuvastatin 10 mg tablet 10 mg PO QAM #90 tabs 03/28/24 05/03/24 Rx sertraline 50 mg tablet (Zoloft) 50 mg PO HS #90 tabs 03/28/24 05/03/24 Rx [place] Tail Mushroom 1 dose PO QAM 04/16/24 05/03/24 History ascorbic acid (vitamin C) 1,000 mg 1,000 mg PO QAM 04/16/24 05/03/24 History tablet (Vitamin C) dexlansoprazole 60 mg 60 mg PO 1200 04/16/24 05/03/24 History capsule,biphase delayed release (Dexilant) fexofenadine 180 mg tablet 90 mg PO QAM 04/16/24 05/03/24 History gabapentin 300 mg capsule 300 mg PO HS 04/16/24 05/03/24 History lisinopril 20 mg tablet 20 mg PO QAM 04/16/24 05/03/24 History zolpidem 6.25 mg tablet,extended 6.25 mg PO HS PRN sleep #30 tabs 04/16/24 05/03/24 Rx release,multiphase methylprednisolone 4 mg tablet 4 mg PO DAILY 04/29/24 05/03/24 History levothyroxine 88 mcg tablet 88 mcg PO QAM #90 tabs 05/06/24 Rx Past Med/Surg History Problem List Squamous cell carcinoma in situ Lumbar spinal stenosis Lumbar spondylosis Rotator cuff tear arthropathy of left shoulder Left knee DJD Sensorineural hearing loss (SNHL) of left ear with restricted hearing of right ear Tinnitus Asymmetric SNHL (sensorineural hearing loss) Arthralgia Encounter for pre-operative examination Bilateral tinnitus Hearing loss Right knee DJD History of colon polyps Acid reflux Low vitamin B12 level PMR (polymyalgia rheumatica) Adenomatous colon polyp Allergic rhinitis Barretts esophagus Depression Hyperlipidemia Hypertension Hypothyroidism Insomnia Prediabetes diet Rosacea Medical History History of COVID-19 03/27/2024 (home test): fatigue, muscle aches, sinus congestion, sore throat, cough, fever > resolved Pre-diabetes Monitoring Current diet/lifestyle modifications Claustrophobia Insomnia Depression Anxiety Hypothyroidism Hyperlipidemia Hypertension PMR (polymyalgia rheumatica) Follows with Dr. Tran, current Methylprednisolone 4mg daily Hearing deficit L > R Has hearing aids (occasional use) Bilateral tinnitus chronic Lumbar spondylosis Lumbar spinal stenosis Chronic back pain Hx of colonic polyps Davis esophagus "Controlled, stable" GERD (gastroesophageal reflux disease) Benign paroxysmal positional vertigo No recent issues Obesity Surgical History S/P epidural steroid injection x1 Lumbar S/P right knee surgery (1974) S/P excision of ganglion cyst Multiple, b/l History of bilateral cataract extraction History of temporal artery biopsy (08/26/19) Bilateral temporal artery biopsy History of esophagogastroduodenoscopy (EGD) Hx of colonoscopy Hx of tonsillectomy History of carpal tunnel release of both wrists H/O hand surgery Left thumb tendon repair Family History Father Coronary heart disease Heart disease Hypertension Mother Diabetes Non Hodgkin's lymphoma Lymphoma Cancer Stroke Other Hypothyroidism No family history of adverse response to anesthesia Social History Smoking Status: Never smoker Second Hand Exposure: No; Do You Dip or Chew Tobacco: No; Hx Alcohol Use: Yes Alcohol type: beer Hx Substance Use: No Preferred Language: Bruneian Communication Ability: Effective Beam Dyer Recessed Vat Required: No Beliefs That Will Affect Care: None marital status: Current Living Situation: Spouse current occupational status: retired Feels Safe at Home: Yes Assistive Devices: Glasses and Hearing Aid - Bilateral Review of Systems All systems reviewed & are unremarkable except as noted in HPI & below. Physical Exam . Physical nation of the right knee reveals patient walks independently. She is got fairly neutral alignment to her knee. Is got a scar in the front of the knee. Small knee effusion. He is got some diffuse palpable but bony hypertrophy throughout her whole knee. Range of motion about 10-1 20. She has no particular instability. No pain with hip motion. Constitutional WD/WN, vitals as above Respiratory normal respiratory effort, lungs clear to auscultation Cardiovascular RRR, no murmur, no edema Gastrointestinal (Abdomen) normal bowel sounds, soft, nontender, no hepatosplenomegaly Results & Data Results & Data Laboratory Results . Diagnostic Findings . X-rays of the right knee reviewed. Shows moderate to advanced right knee tricompartment DJD. She is got fairly advanced medial and patellofemoral disease. There is evidence of some type of work on her tibial tubercle in the past. PG Care Time/CCT Total # of Minutes Spent Total Time Spent with Patient: Total time spent is greater than 50% in coordination of care (as documented) at patient's floor/unit and/or counseling patient: Coding Level of Care Code None Diagnoses Right knee DJD M17.11 Hypertension, unspecified type I10 Hypertension type: unspecified Hypothyroidism, unspecified type E03.9 Hypothyroidism type: unspecified Prediabetes R73.03 Hyperlipidemia, unspecified hyperlipidemia type E78.5 Hyperlipidemia type: unspecified Depression, unspecified depression type F32.9 Depression Type: unspecified PMR (polymyalgia rheumatica) M35.3 Acid reflux K21.9 (2) Hypertension Hypertension type: unspecified Qualified Code(s): I10 - Essential (primary) hypertension (3) Hypothyroidism Hypothyroidism type: unspecified Qualified Code(s): E03.9 - Hypothyroidism, unspecified (5) Hyperlipidemia Hyperlipidemia type: unspecified Qualified Code(s): E78.5 - Hyperlipidemia, unspecified (6) Depression Depression Type: unspecified Qualified Code(s): F32.9 - Major depressive disorder, single episode, unspecified
[~2024-05-29 09:46] MED LIST changes: +ALLERGY Noted to ORDERED Medication SCH; -ASCO10003 PO; +BUPIVACAINE 0.5 % 5 MG/1 ML PF 10ML VIAL ONE; -CITA40TA12 PO; -DEXL60CA4 PO; -DOXY-300 PO; -KETO10TA PO; -LEVO125T72 PO; +ROPIVACAINE 0.5% 5 MG/ML 30 ML VIAL ONE; -ROSU20TA PO; -ZOLP5TAB PO
[2024-05-29] MEDS ORDERED: Nursing to Pharmacy Communication SCH (10:30)
[2024-05-29] MEDS: ACETAMINOPHEN 500 MG TAB PO SCH ×2 (10:35→20:29)
[2024-05-29] MEDS: FAMOTIDINE 20 MG TAB PO SCH (10:36)
[2024-05-29] MEDS: METOCLOPRAMIDE HCL 10 MG TABLET PO SCH (10:36)
[2024-05-29] MEDS: LR 500ML BOLUS, THEN 15ML/HR IV SCH (10:36)
[2024-05-29] MEDS: CeleBREX 200 MG CAP PO SCH (10:36)
[2024-05-29] MEDS: LR 60ML/HR IV SCH (10:36)
[2024-05-29] MEDS: Scopolamine 1 MG TDSY TD SCH (10:37)
[2024-05-29] MEDS: dexAMETHasone**PF** 10 MG/ML VIAL IV SCH (10:37)
--- NOTE | 2024-05-29 10:39 | History & Physical Bridge Note ---
Date of Service May 29, 2024 History & Physical Bridge Note I have examined the patient, reviewed the History & Physical and in the interval since the performance of the History & Physical I have noted the following changes of clinical significance: no changes noted
[2024-05-29] MEDS ORDERED: MIDAZOLAM HCL 1 MG/ML 2ML VIAL ONE (12:32)
[2024-05-29] MEDS ORDERED: SODIUM CHLORIDE 0.9% PF INJ 10 ML VIAL ONE (12:40)
[2024-05-29] MEDS ORDERED: BUPIVACAINE 0.5 % 5 MG/1 ML PF 10ML VIAL ONE (12:40)
[2024-05-29] MEDS: ceFAZolin 2000MG 2,000 MG/15 ML SYR IV SCH ×2 (12:58→19:57)
[2024-05-29] MEDS: ROPIV 0.5% 246mg, Ketorolac 30mg, EPINEPHrine 0.5mg in NSS INFIL SCH (14:01)
[2024-05-29] MEDS: ORTHO JOINT ANESTHETIC ONE (14:01)
[2024-05-29] MEDS: TRANEXAMIC ACID 1,000 MG **IV Pre-op IV SCH (14:08)
[2024-05-29] MEDS ORDERED: LIDOCAINE 2% 2 ML VIAL/AMP(20MG/ML) INFIL ONE (14:17)
[2024-05-29] MEDS ORDERED: PROPOFOL IV EMULSION 10 MG/ML 20 ML VIAL IV ONE (14:17)
[2024-05-29] MEDS ORDERED: ePHEDrine sulfate 50 MG/5 ML SYR ONE (14:32)
--- NOTE | 2024-05-29 14:49 | Operative Report ---
PG Post Operative Report Pre & Post Diagnosis Operation Date: 05/29/24 12:20 Pre-Op Diagnosis: Degenerative Joint Disease Right Knee Post-Op Diagnosis: Degenerative Joint Disease Right Knee I identified the patient and participated in the time-out.: Yes Procedure Operation Date: 05/29/24 12:20 Actual Procedures p Right Total Knee Arthroplasty, Cemented(Right) - Phuc Herman MD Surgeon Phuc Herman MD [employer] Physical Therapist Robe Betancur PA-C Estimated Blood Loss 50 Findings Consistent with Post-Op Diagnosis Operative findings revealed advanced right knee tricompartment DJD. Showed e vidence of the previous surgery many years ago likely and extensor mechanism reconstruction with shifting the tibial tubercle. She had full-thickness cartilage loss of the medial and patellofemoral compartments. Slight flexion contracture. Specimens Right knee sent for pathology. Anesthesia Type Spinal MAC Complications none Disposition Accompanied Patient To Recovery: No Indications The patient is a 69-year-old female has had a long history of gradual progressive right knee pain discomfort. I been following for the past 5 years. Conservative care became less successful. She does have a history of some unspecified open knee surgery back in 1974. She is failed all conservative measures and elected proceed with total knee arthroplasty. Description of Procedure Operative implants consist of: 1 Biomet Vanguard size 65 right posterior Byce femoral component. 2. Biomet size 67 tibial tray. 3. 10 mm posterior Byce polyethylene insert. 4. 31 x 8 all poly patella. The patient was taken the operating, identified, and placed on the operating table in the supine position. All contact areas were appropriately padded. IV antibiotics fibra anesthesia team. Spinal anesthetic and adductor canal block had been [place] in the holding area. A Salinas catheter was placed in sterile fashion. Right Tetrick was then placed. The right lower extremities then prepped draped in usual sterile fashion. The right leg was elevated and exsanguinated with use of an Esmarch and a turn was placed at 300 mmHg. An anterior approach to the right knee was then performed using some of the previous incision and extending it proximally over the quad. Sharp dissection Through subcutaneous tissue down the extensor mechanism. Medial parapatellar arthrotomy incision was performed. We had to deviate this very for medially due to to what appeared to be a shifted tibial tubercle. The fat pad was dissected from Neath patella tendon. The the patella was then subluxate laterally. The knee was flexed. The osteophytes taken off distal femur. The ACL and PCL were then released from distal femur the tibia subluxated anteriorly. I cannot put the external tibial alignment jig on the anterior face the tibia in order to cut the tibia still in IM guide was placed. The tibial eminence was resected. The IM guide was placed. The proximal tibial cut was made remove about 2 mm of bone from the medial side. The tibia sized to a size 67. Attention drawn the femur. The distal femur was the sharp drop with intramedullary canal was suction. Right 5 degree valgus cutting guide was placed. This femoral cutting block was pinned in place. This femoral cut was made to take an additional 5 mm of bone off distal femur due to her flexion contracture. The femur was then sized to a size 65. The 8 cutting block was pinned parallel to the epicondylar axis which was 4 degrees of external rotation. The anterior cut, anterior chamfer, posterior cut, posterior chamfer cuts were made. The box cutting guide was placed and just slight lateral and the box cut was made. The knee was flexed. The remnants of the medial and lateral menisci were excised. The osteophytes taken off the posterior aspect of the femur. Trial femoral component was placed. Tibial tray was pinned Lizeth external rotation and the drill and stem punch used to create defect in proximal tibia for the tibial tray. Knee was then trialed and the 10 mm insert fit most appropriately. Attention drawn the patella. The patella was extremely worn. The patella thickness measured by 18 mm in thickness was cut down to 13. Was sized to a size 31 patella. The lug holes were drilled for 31 patella. Lateral osteophytes removed. The patella button was placed. Knee was taken through range of motion patella tracked nicely with no thumbs test. Attention drawn to place the permanent components. All trial components were removed. Bone plug was placed into the distal femur limit blood loss. Double batch [place] G cement was mixed. A Biomet Vanguard size 65 right posterior Byce femoral component, a size 67 tibial tray, 10 mm posterior Byce polyethylene insert, and a 31 x 8 all poly patella then cemented in place. The knee was brought out in full extension till cement hardened. Final cement check was then performed. The pericapsular tissues were injected with total of 100 cc of Ortho mix. Patient did receive 1 g tranexamic acid. The tourniquet was then let down for final tourniquet time of 60 minutes. Hemostasis assured with electrocautery. Extensor Meclomen closed with combination 1 PDS suture #1 Vicryl suture in a [id number] fashion. Extensor Meclomen checked found to be intact and subcutaneous tissues then closed with 2 Dexon suture in a buried interrupted fashion skin was closed skin maynor. Leg was then cleaned and dried and a sterile dressing with Xeroform, 4 fours, sterile cast padding, Pete bandage were applied. Patient then transferred to the recovery room in stable condition. Patient tolerated the procedure well and there were no complications. Robe Betancur, my physician banking assistant, was present for the entire procedure. His assistance was essential and required for appropriate patient positioning, prepping and draping, surgical exposure, performing the technical details of the operation, placement the implants, closure of the wound, and placement of the sterile bandage. I attest to the content of the Intraoperative Record and any orders documented therein. Any exceptions are noted below.
--- NOTE | 2024-05-29 15:21 | XRay Report ---
TWO VIEWS RIGHT KNEE CLINICAL HISTORY: Postoperative examination. FINDINGS: AP and crosstable lateral portable views of the right knee are obtained. A right knee arthr oplasty is in near anatomic alignment. There has been undersurface remodeling of the patella. No acut e fracture is seen. There are expected postoperative changes around the knee including skin clips, so ft tissue edema, and subcutaneous gas. IMPRESSION: Expected postoperative changes status post right knee arthroplasty. No acute fracture is seen. ACT 112: Negative or not required by law. Electronically signed by: Wilian Alberto M.D. 05/29/2024 3:20 PM
--- NOTE | 2024-05-29 15:27 | Anesthesiology Progress Note ---
Date of Service May 29, 2024 Anesthesia Post Procedure Vital Signs Vital Signs: Temp Pulse Pulse Resp BP Pulse Ox O2 Del Method 05/29/24 15:15 68 18 131/59 L 98 Oxymask 05/29/24 15:05 68 16 122/57 L 99 Oxymask 05/29/24 14:55 68 16 113/56 L 100 Oxymask 05/29/24 14:45 36.6 C 75 18 111/55 L 94 Oxymask 05/29/24 10:05 36.9 C 65 18 209/95 H 96 Room Air O2 Flow Rate 05/29/24 15:15 3 05/29/24 15:05 3 05/29/24 14:55 3 05/29/24 14:45 5 05/29/24 10:05 Transfer of Care Handoff Completed per policy Notes Mental Status: alert / awake / arousable and participated in evaluation Patient Amnestic to Procedure: Yes Nausea / Vomiting: adequately controlled Pain: adequately controlled Airway Patency, RR, SpO2: stable & adequate BP & HR: stable & adequate Hydration State: stable & adequate Anesthetic Complications: no major complications apparent
[2024-05-29] MEDS ORDERED: MAGNESIUM HYDROXIDE SUSP 30 ML UDC PO PRN (15:45)
[2024-05-29] MEDS ORDERED: ONDANSETRON INJ 2 MG/ML 2 ML VIAL IV PRN (15:45)
[2024-05-29] MEDS ORDERED: HYDROmorphone INJ 0.5 MG/0.5 ML SYR IV PRN (15:45)
[2024-05-29] MEDS ORDERED: NALOXONE HCL 0.4 MG/1 ML VIAL/CARP IV PRN (15:45)
[2024-05-29] MEDS ORDERED: METOCLOPRAMIDE HCL INJ 5 MG/ML 2 ML VIAL IV PRN (15:45)
[2024-05-29] MEDS ORDERED: bisacodyL 10 MG SUPP PR PRN (15:45)
[2024-05-29] MEDS ORDERED: ALUMINUM/MAGNESIUM SUSP 30 ML UDC PO PRN (15:45)
[2024-05-29] MEDS: ceFAZolin 2,000 MG/15 ML IV PUSH IV ONE (16:18)
[2024-05-29] MEDS: SODIUM CHLORIDE 0.9% 1,000 ML IV SCH (16:48)
[2024-05-29] MEDS: Scopolamine CHECK PATCH PLACEMENT SCH (16:48)
[2024-05-29] MEDS: KETOROLAC TROMETHAMINE 15 MG/ML VIAL IV SCH (17:02)
[2024-05-29] MEDS: ASCORBIC ACID 500 MG TAB PO SCH (17:02)
[2024-05-29] MEDS: oxyCODONE HCL IR 5 MG TAB (IMMEDIATE RELEASE) PO PRN (19:56)
[2024-05-29] MEDS: TRANEXAMIC ACID / 0.7% NACL 1,000 MG/100 ML BAG IV SCH (19:57)
[2024-05-29] MEDS: SERTRALINE HCL 50 MG TABLET PO SCH (19:58)
[2024-05-29] MEDS: ASPIRIN 81 MG ECTAB PO SCH (19:58)
[2024-05-29] MEDS: GABAPENTIN 300 MG CAP PO SCH (19:59)
[2024-05-29] MEDS: DOCUSATE SODIUM 100 MG CAP PO SCH (20:30)
[2024-05-29] MEDS: SENNA 8.6 MG TAB PO SCH (20:30)
[2024-05-29] MEDS ORDERED: SENNA 8.6 MG TAB PO SCH (21:00)
[2024-05-30] MEDS: ZOLPIDEM TARTRATE 5 MG TAB PO PRN (00:49)
[2024-05-30 02:27] VITALS: TEMP 97.9
[2024-05-30] MEDS: LEVOTHYROXINE SODIUM 88 MCG TABLET PO SCH (06:07)
[2024-05-30 06:40] LABS: Hemoglobin 10.9 g/dl (12.0-16.0); Mean Corpuscular Hemoglobin 32.9 pg (25.0-34.0); Mean Corpuscular Volume 99.7 fL (80.0-100.0); Platelet Count 187 K/uL (130-400); RDW Coefficient of Variation 12.1 % (11.5-14.5); RDW Standard Deviation 44.5 fL (36.4-46.3); Red Blood Count 3.31 M/uL (4.20-5.40)
[2024-05-30 06:52] LABS: BUN Creatinine Ratio 19.8 (10-20); Calcium 8.3 mg/dl (8.6-10.3); Creatinine Clr Calc Pharmacy 61.3 ml/min
--- NOTE | 2024-05-30 06:56 | Orthopedic Progress Note ---
Date of Service May 30, 2024 Assessment & Plan (1) Status post right knee replacement: Plan: 69-year-old female postop day 1 from right knee replacement doing well. Pains controlled. She is neurologically intact. Hoping to go home. Plan: 1. DVT prophylaxis including thigh-high teds, SCDs, aspirin twice a day. 2. PT/OT. She can weight-bear as tolerated. Right total knee protocol. 3. Pain control. Doing well with current pain regimen. 4. Disposition. Plan to discharge to home with some home health after therapy today. Admission and Anticipated Discharge Date Admission Date: May 29, 2024 Subjective 69-year-old female postop day 1 from right knee replacement. She is doing pretty well. Had a bit more pain overnight took some pain medicine is doing better this morning. No chest pain or shortness of breath. Not feeling dizzy or lightheaded. Hoping to go home. Physical Exam Physical Exam: Physical examination is a pleasant middle-age female. She is lying in bed this morning looks pretty comfortable. Examination of the right leg reveals dressing be clean dry and intact. Knee is well aligned. She can dorsiflex and plantarflex her foot appropriately. She is neurologically intact. Respiratory: normal respiratory effort, lungs clear to auscultation Cardiovascular: RRR, no murmur, no edema Gastrointestinal (Abdomen): normal bowel sounds, soft, nontender, no hepatosplenomegaly Results & Data Vital Signs (Past 12 Hours) Vital Signs Temp Pulse Resp BP Pulse Ox O2 Del Method 05/30/24 02:26 36.6 C 55 L 16 143/72 H 94 Room Air 05/29/24 23:08 36.8 C 62 18 146/77 H 94 Room Air 05/29/24 19:35 36.6 C 70 16 156/74 H 93 Room Air Laboratory Results Hemoglobin is 10.9. Hematocrit is 33.0. Electrolytes are stable.
[2024-05-30 07:21] VITALS: BP 162/75; PULSE 60; RESP 18; O2SAT 96
[2024-05-30] MEDS: CHOLECALCIFEROL 25 MCG (1000 UNITS) TAB PO SCH (08:21)
[2024-05-30] MEDS: dexAMETHasone 10 MG in SYRINGE 0 ML IV SCH (08:21)
[2024-05-30] MEDS: ASCORBIC ACID 500 MG TAB PO SCH (08:21)
[2024-05-30] MEDS: FEXOFENADINE HCL 180 MG TAB PO SCH (08:22)
[2024-05-30] MEDS: lisinopril 20 MG TAB PO SCH (08:22)
[2024-05-30] MEDS: MULTIVITAMIN TAB PO SCH (08:23)
[2024-05-30] MEDS: ROSUVASTATIN CALCIUM 10 MG TAB PO SCH (08:23)
[2024-05-30] MEDS ORDERED: TURKEY TAIL MUSHROOM PO SCH (09:00)
[2024-05-30] MEDS ORDERED: PANTOprazole 40 MG TAB PO SCH (12:00)
[2024-05-31] MEDS ORDERED: methylPREDNISolone 4 MG TAB PO SCH (09:00)
--- NOTE | 2024-06-03 09:20 | Discharge Summary ---
Date of Service June 03, 2024 Admission HPI (Per Admitting) . The patient is a 69-year-old female from [place] who presents for surgical treatment of her right knee. Long history of knee problems and had a open knee procedure done in [place] back in 1974. Most likely related somewhat to the patellofemoral joint. Over the years she developed persistent and progressive increased pain in her knee. Is global pain. Describes gotten worse and less responsive conservative care. Intermittent swelling. She also is being treated for PMR by Dr. Tran. Did not like proceed with definitive treatment for her right knee. Admission Exam (Per Admitting) . Physical nation of the right knee reveals patient walks independently. She is got fairly neutral alignment to her knee. Is got a scar in the front of the knee. Small knee effusion. He is got some diffuse palpable but bony hypertrophy throughout her whole knee. Range of motion about 10-1 20. She has no particular instability. No pain with hip motion. Principal Diagnosis Same as "Discharge Diagnosis" noted below under Discharge Instructions. Discharge Data Procedures Performed Operation Date: 05/29/24 12:20 Actual Procedures p Right Total Knee Arthroplasty, Cemented(Right) - Phuc Herman MD Ordered Studies 05/29/24 05:00 US - OR guided needle placemen Routine Hospital Course (1) Status post right knee replacement: This is a 69 year old patient admitted on 05/29/24 and underwent total knee arthroplasty. She tolerated the procedure well and there were no complications. Transferred to the PACU post op and later to the orthopedic floor for further care. She was given ancef for antibiotic prophylaxis. She was also given CELESTE stockings, SCDs, and aspirin for DVT prophylaxis. Hemoglobin, hematocrit, and vital signs were monitored during her hospital stay and remained stable. Did not require any blood transfusions. There were no complications during her hospital stay. By post op day #1 the patient was tolerating a regular diet, pain was reasonably controlled with oral pain medicine, and she was participating in physical therapy. On post op day #1 the patient was discharged home and set up with home health care. She was given printed discharge instructions including prescriptions for extra strength tylenol, aspirin, cefadroxil, ketorolac, zofran, oxycodone, and senokot. Continue physical therapy, weight bearing as tolerated. Continue CELESTE stockings. Follow up approximately 2 weeks post op or sooner if there are problems or concerns. Discharge Plan Discharge Items Patient Disposition: Home - Home Health Services Reason For Visit: RIGHT KNEE REPLACEMENT Discharge Diagnosis: Right Knee REplacement Activity: Per Instructions section Weightbearing: Full weightbearing Non-emergency contact: Surgeon Call non-emergency contact if: you have any medication questions Follow-up/Referrals: Marli Bolton, [Primary Care Provider] - Diet: Carb Consistent or DM2 Addtl Attending Provider Instructions: ACTIVITY RECOMMENDATIONS: Diet: * You may resume previous diet. Physical Therapy: * You will go to physical therapy three times each week for four to six weeks after your surgery in order to regain your knee range of motion and to retrain your knee to work properly. * It is just as important to make sure you are getting your knee perfectly straight as it is to regain your knee bend. * Taking a pain pill an hour before therapy can help you have a more productive and comfortable therapy session. Home Exercise: * You were shown a series of exercises (heel props, heel slides, etc.) in the hospital. Do these exercises three to four times each day including the exercises you were shown in physical therapy. Walking: * Get up and walk several times each day. For the first four weeks, try not to stand or walk for more than one hour at a time. If you do stand or walk for more than one hour, you will not hurt anything, but your knee and leg will likely swell. * As you feel comfortable, you may change from the walker or crutches to a cane and then to independent walking. MEDICATIONS: New Medicine: * You will likely be taking one or more of these medications: 1. Oxycodone - A quick and shorter-acting pain medication. Take one to two tablets every six hours to lessen your pain. 2. Aspirin - Thins your blood to lessen the chance of forming a blood clot. * The most common side effects of pain medicine and iron are nausea and constipation. If nausea or constipation is too much of a problem or if you have any questions about your new medicines or doses, call [facility] at . We will try to help you manage these issues. "VERY IMPORTANT TO READ AND REVIEW" Pain: * The immediate post-operative period after knee replacement surgery is often quite painful. * You are given a prescription for pain medicine. You should take it, as directed, when you need it, especially before physical therapy and before going to bed. Pain that interferes with sleep is very common and can last several months. * You will likely need pain medicine for the first four to six weeks. It will not stop all of the pain. The pain will lessen and as you feel better, you may change to milder pain medicine such as Tylenol. * The most common side effects of pain medicine are nausea and constipation, so don't take more than you need. SPECIAL CARE INSTRUCTIONS: TEDs/Elastic Stockings: * The white elastic stockings help limit swelling and prevent blood clots from forming in your legs. The more you wear them, the more they work. * Wear them for six weeks after knee replacement surgery and four weeks after partial knee replacement. Incision Site Care: * Remove dressing postoperative day 2 and then shower. Keep direct shower pressure off the incision site. * After showering, cover maynor with dry gauze and change daily or more frequently if the dressing is getting saturated with drainage. * Use the CELESTE stockings to hold dressing in place. DO NOT apply tape on the skin. * May completely stop using bandage if wound is dry and no drainage * Nara Visa are removed between 2 and 3 weeks post-op. If your follow-up appointment is made before 2 weeks, please have your appointment re- scheduled. It is too early to remove the maynor. Prevention of Infection: * Take antibiotics one hour before any dental cleaning, dental work, urological procedure, gastrointestinal procedure or any invasive surgery in order to prevent your new joint from getting infected. * You may get the antibiotics from the doctor performing the procedure or you may call our office at [phone] before and we will call in a prescription to the pharmacy of your choice. Things to Watch For: * Drainage from the incision site that occurs more than one week after your surgery. * Severely increased knee/leg pain or swelling. * Increased redness at the incision site. * Fever above 102 degrees Fahrenheit. * Unusual chest pain or shortness of breath. * Unusual pain or burning with urination. Call [facility] at [phone] with any of the above problems or if you have any questions about your medicines or recovery. FOLLOW UP VISIT: Make an appointment to see your doctor for approximately two weeks after surgery for a progress check and staple removal by calling the office at [phone]. Pending Studies at Discharge: No Stand-Alone Forms: My [facility], Smoking Cessation Medications and DC Order Prescriptions: Continued rosuvastatin 10 mg tablet 10 mg PO QAM Qty: 90 2RF sertraline [Zoloft] 50 mg tablet 50 mg PO HS Qty: 90 3RF zolpidem 6.25 mg tablet,ext release multiphase 6.25 mg PO HS PRN (Reason: sleep) Qty: 30 5RF Rx Instructions: approved 05/26/2020----05/26/2023 levothyroxine 88 mcg tablet 88 mcg PO QAM Qty: 90 3RF sennosides [Senokot] 8.6 mg tablet 8.6 mg PO BID 14 Days Qty: 28 0RF Rx Instructions: Take two times a day to prevent/treat constipation aspirin [Gamaliel Low Dose Aspirin] 81 mg tablet,delayed release (DR/EC) 81 mg PO BID 45 Days Qty: 90 0RF Rx Instructions: Take to prevent blood clots. acetaminophen [Tylenol Extra Strength] 500 mg tablet 1,000 mg PO TID 30 Days Qty: 180 0RF Rx Instructions: Take 3 times per day to lessen pain. ketorolac 10 mg tablet 10 mg PO Q6 5 Days Qty: 20 0RF Rx Instructions: Take 4 times per day with food for 5 days to lessen pain and swelling. cefadroxil 500 mg capsule 500 mg PO BID 7 Days Qty: 14 0RF Rx Instructions: Take 1 cap twice a day to prevent infection ondansetron 4 mg tablet,disintegrating 4 mg PO Q8 PRN (Reason: nausea) Qty: 20 1RF Rx Instructions: Take as needed for nausea oxycodone 5 mg tablet 5 - 10 mg PO Q6 PRN (Reason: pain) Qty: 40 0RF Rx Instructions: Take as needed for pain cholecalciferol (vitamin D3) 50 mcg (2,000 unit) capsule 50 mcg PO QAM ascorbic acid (vitamin C) [Vitamin C] 1,000 mg Tablet 1,000 mg PO QAM fexofenadine 180 mg Tablet 90 mg PO QAM [place] Mushroom 1 dose PO QAM lisinopril 20 mg tablet 20 mg PO QAM gabapentin 300 mg capsule 300 mg PO HS dexlansoprazole [Dexilant] 60 mg capsule,biphase delayed releas 60 mg PO 1200 methylprednisolone 4 mg tablet 4 mg PO DAILY Rx Instructions: as directed Discontinued acetaminophen [Tylenol Arthritis Pain] 650 mg tablet extended release 650 mg PO QAM Krames/Other Patient Handouts: Total Knee Replacement Admission Data Admit Date/Time: 05/29/24 14:42 Attending Provider: Phuc Herman Admit Provider: Phuc Herman Primary Care Provider: Marli Bolton Other Providers: [facility],Home Health Other Interventions: Discharge Summary Assessment (RN) Last Done: 05/30/24 11:06
== END 2024-05-30 11:35 | disposition home health service (06) ==
LOC: ASU 09:46 → 3E 09:46